=== PATIENT | male | born 1975 | race Caucasian/White ===

== ENCOUNTER 2018-12-31 22:38 | Observation (INO) ==
[2018-12-31] MEDS ORDERED: PANTOPRAZOLE 40 MG VIAL IV STA (22:53)
[2018-12-31] MEDS ORDERED: ONDANSETRON 4 MG/2 ML VIAL IV STA (22:53)
[2018-12-31] MEDS ORDERED: ASPIRIN 325 MG TABLET PO STA (22:53)
[2018-12-31 23:23] LABS: Basophils % 0.6 % (0.0-0.8); Eosinophils # 0.3 10*3/uL (0.0-0.87); Eosinophils % 4.4 % (0.00-10.9); Hematocrit 41.4 VOL% (42.0-52.0); Immature Granulocytes % 0.2 %; Immature Granulocytes Absolute 0.01 #; Lymphocytes # 1.5 10*3/uL (1.4-4.0); Lymphocytes % 24.1 % (21.2-54.2); Mean Corpuscular HGB Conc 33.8 GM/DL (32-36); Mean Corpuscular Volume 86.1 FL (87-102); Mean Platelet Volume 9.7 FL (9.6-12.0); Monocytes % 7.6 % (1.7-12.7); Neutrophils % 63.1 % (38.7-73.9); Platelet Count 227 T/CUMM (130-400); Red Blood Count 4.81 MC/CUMM (3.8-5.5); Red Cell Distribution Width 11.9 % (9.3-17.3); White Blood Count 6.2 T/CUMM (4-12)
[2018-12-31 23:35] LABS: PT Patient Result 10.7 SECS (9.6-12.2); Partial Thromboplastin Time 26.4 SECS (20.8-36.0)
[2018-12-31 23:45] LABS: Alanine Aminotransferase 52 U/L (16-61); Alkaline Phosphatase 55 U/L (45-117); Aspartate Amino Transferase 44 U/L (0-37); Blood Urea Nitrogen 15 MG/DL (7-18); CKMB % 1.6 %; Calcium 9.2 MG/DL (8.5-10.1); Estimated Glom Filtration Rate 117 ML/MIN; Glucose 102 MG/DL (74-106); Total Protein 7.1 G/DL (6.4-8.3); Troponin I < 0.015 NG/ML (0.00-0.045)
[2018-12-31] MEDS ORDERED: POTASSIUM BICARB EFFERVESCENT 25 MEQ TABLET PO ONE (23:58)
[2019-01-01] MEDS ORDERED: NITROGLYCERIN 2% OINT 1 INCH/GM PACK TOP STA
[2019-01-01] MEDS ORDERED: ACETAMINOPHEN 325 MG TABLET PO PRN (00:30)
[2019-01-01] MEDS ORDERED: POTASSIUM CHLORIDE 20 MEQ TABLET PO PRN (00:30)
[2019-01-01] MEDS ORDERED: ONDANSETRON 4 MG/2 ML VIAL IV PRN (00:30)
[2019-01-01] MEDS ORDERED: DEXTROSE 50% 25 GM/50 ML VIAL IV PRN (00:30)
[2019-01-01] MEDS ORDERED: GLUCAGON 1 MG VIAL IM PRN (00:30)
[2019-01-01] MEDS ORDERED: MORPHINE 4 MG/1 ML VIAL IV PRN (00:30)
[2019-01-01] MEDS ORDERED: ALUM/MAG/SIMETH/LIDO VISC 1:1 30 ML BOTTLE PO ONE (01:22)
[2019-01-01] MEDS ORDERED: ALUM/MAG/SIMETH/LIDO VISC 1:1 30 ML BOTTLE PO STA (01:31)
[2019-01-01 02:11] LABS: Risk Ratio 2.47; VLDL CHOLESTEROL 15.8 MG/DL
[2019-01-01 03:25] LABS: Barbiturates Screen,Urine Negative (Negative); Benzodiazepines Screen,Urine Negative (Negative); Cannabinoid Screen,Urine Positive (Negative); Opiate Screen,Urine Negative (Negative); Phencyclidine Screen,Urine Negative (Negative)
[2019-01-01 04:13] LABS: CKMB % 1.5 %; Troponin I 0.017 NG/ML (0.00-0.045)
[2019-01-01 07:06] LABS: CKMB % 1.6 %; Troponin I 0.023 NG/ML (0.00-0.045)
[2019-01-01 08:39] VITALS: BP 148/95
[2019-01-02] MEDS ORDERED: ASPIRIN EC 325 MG TABLET PO SCH (09:00)
== END 2019-01-01 11:30 | disposition home or self-care (01) ==
LOC: N.EDINP 22:38 → N.ED 22:38 → N.2W 01-01 01:36
PROVIDERS: ADMIT Emergency Medicine; ATTEND Emergency Medicine

== ENCOUNTER 2021-07-19 22:52 | Observation (INO) ==
[2021-07-19] MEDS ORDERED: THIAMINE INJ 100 MG, FOLIC ACID INJ 1 MG, MAGNESIUM SULF INJ 2 GM, MULTIVITAMIN INJ 10 ... IV STA (23:30)
[2021-07-19] MEDS ORDERED: THIAMINE 200 MG/2 ML VIAL IV STA (23:30)
[2021-07-19] MEDS ORDERED: SODIUM CHLORIDE 0.9% 1,000 ML IV STA ×2 (23:32→23:42)
[2021-07-19 23:56] LABS: Acetaminophen < 2.0 UG/ML (10-30); Salicylate < 2.8 MG/DL (2.8-20)
[2021-07-20 00:07] LABS: Albumin 3.8 G/DL (3.4-5.0); Bilirubin,Total 0.4 MG/DL (0.20-1.00); Calcium 8.8 MG/DL (8.5-10.1); Osmolality,Calculated 290.7 MOS/KG (273-304); Potassium 3.7 MMOL/L (3.5-5.1); Total Protein 7.4 G/DL (6.4-8.2)
[2021-07-20 00:22] LABS: Basophils % 0.4 % (0.0-0.8); Eosinophils # 0.2 10*3/uL (0.0-0.87); Eosinophils % 2.6 % (0.00-10.9); Hematocrit 49.9 VOL% (42.0-52.0); Hemoglobin 17.1 GM/DL (14.0-18.0); Immature Granulocytes % 0.4 %; Immature Granulocytes Absolute 0.03 #; Lymphocytes # 2.8 10*3/uL (1.4-4.0); Lymphocytes % 33.9 % (21.2-54.2); Mean Corpuscular HGB Conc 34.3 GM/DL (32-36); Mean Corpuscular Volume 89.3 FL (87-102); Mean Platelet Volume 9.7 FL (9.6-12.0); Monocytes # 0.7 10*3/uL (0.11-0.8); Monocytes % 8.4 % (1.7-12.7); Neutrophils % 54.3 % (38.7-73.9); Platelet Count 279 T/CUMM (130-400); Red Blood Count 5.59 MC/CUMM (3.8-5.5); Red Cell Distribution Width 12.5 % (9.3-17.3); White Blood Count 8.4 T/CUMM (4-12)
[2021-07-20] MEDS ORDERED: ONDANSETRON 4 MG/2 ML VIAL IV PRN (00:55)
[2021-07-20] MEDS ORDERED: ACETAMINOPHEN 325 MG TABLET PO PRN (00:55)
[2021-07-20] MEDS ORDERED: LORazepam 2 MG/1 ML VIAL IV PRN (00:57)
[2021-07-20 01:04] LABS: Mucus,Urine Occasional /LPF (Occasional); RBC,Urine <1 /HPF (0-4)
[2021-07-20 01:05] LABS: Bilirubin,Urine Negative (Negative); Blood, Urine Trace mg/dL (Negative); Glucose,Urine (UA) Negative (Negative); Ketones,Urine Negative (Negative); Nitrite,Urine Negative (Negative); Protein,Urine Negative (Negative); Urine Appearance Clear (Clear); Urine Color Yellow (Yellow); Urine Specific Gravity 1.015 (1.001-1.035); Urine Urobilinogen 0.2 eU/dL (<2.0)
[2021-07-20 02:14] LABS: Barbiturates Screen,Urine Negative (Negative); Benzodiazepines Screen,Urine Negative (Negative); Cannabinoid Screen,Urine Negative (Negative); Opiate Screen,Urine Negative (Negative); Phencyclidine Screen,Urine Negative (Negative)
[2021-07-20] MEDS ORDERED: LORazepam 2 MG/1 ML VIAL IV ONE (07:25)
[2021-07-20] MEDS ORDERED: DOCUSATE SODIUM 100 MG CAPSULE PO SCH (09:00)
[2021-07-20] MEDS ORDERED: FOLIC ACID 1 MG TABLET PO SCH (09:00)
[2021-07-20] MEDS ORDERED: PANTOPRAZOLE 40 MG TABLET PO SCH (09:00)
[2021-07-20] MEDS ORDERED: THIAMINE 100 MG TABLET PO SCH (09:00)
[2021-07-20] MEDS: CLORAZEPATE 7.5 MG TABLET PO SCH ×3 (09:06→13:26)
[2021-07-20 12:27] VITALS: BP 135/65
== END 2021-07-20 13:43 ==
LOC: N.EDINP 22:52 → N.ED 22:52 → N.3E 07-20 02:18
PROVIDERS: ADMIT Family Medicine; ATTEND Family Medicine